=== PATIENT | female | born 1985 | race Two or more races ===

== ENCOUNTER 2021-12-31 09:51 | Outpatient (CLI) | payer OTHER | END 2021-12-31 11:35 | disposition home or self-care (01) | LOC: PRENATAL 09:51 | PROVIDERS: ATTEND Obstetrics & Gynecology Maternal & Fetal Medicine | DX: O24.319 Unspecified pre-existing diabetes mellitus in pregnancy, unspecified trimester (principal) ==

== ENCOUNTER 2022-01-07 12:24 | Outpatient (CLI) | payer OTHER | END 2022-01-07 13:32 | disposition home or self-care (01) | LOC: PRENATAL 12:24 | PROVIDERS: ATTEND Obstetrics & Gynecology Maternal & Fetal Medicine | DX: O36.80X0 Pregnancy with inconclusive fetal viability, not applicable or unspecified (principal) ==

== ENCOUNTER 2022-03-04 12:41 | Outpatient (CLI) | payer OTHER | END 2022-03-04 14:33 | disposition home or self-care (01) | LOC: PRENATAL 12:41 | PROVIDERS: ATTEND Obstetrics & Gynecology Maternal & Fetal Medicine | DX: O35.0XX0 Maternal care for (suspected) central nervous system malformation in fetus, not applicable or unspecified (principal); O35.3XX0 Maternal care for (suspected) damage to fetus from viral disease in mother, not applicable or unspecified; O24.419 Gestational diabetes mellitus in pregnancy, unspecified control; O09.519 Supervision of elderly primigravida, unspecified trimester; O99.210 Obesity complicating pregnancy, unspecified trimester; Z3A.20 20 weeks gestation of pregnancy ==

== ENCOUNTER 2022-04-26 13:33 | Outpatient (CLI) | payer OTHER | END 2022-04-26 15:45 | disposition home or self-care (01) | LOC: PRENATAL 13:33 | PROVIDERS: ATTEND Obstetrics & Gynecology Maternal & Fetal Medicine | DX: O26.849 Uterine size-date discrepancy, unspecified trimester (principal); O24.419 Gestational diabetes mellitus in pregnancy, unspecified control; O09.519 Supervision of elderly primigravida, unspecified trimester; O99.210 Obesity complicating pregnancy, unspecified trimester; Z3A.28 28 weeks gestation of pregnancy ==

== ENCOUNTER 2022-06-04 14:31 | Outpatient (CLI) | payer OTHER | END 2022-06-04 15:48 | disposition home or self-care (01) | LOC: PRENATAL 14:31 | PROVIDERS: ATTEND Obstetrics & Gynecology Maternal & Fetal Medicine | DX: O26.849 Uterine size-date discrepancy, unspecified trimester (principal); O24.419 Gestational diabetes mellitus in pregnancy, unspecified control; O09.519 Supervision of elderly primigravida, unspecified trimester; O99.210 Obesity complicating pregnancy, unspecified trimester; Z3A.33 33 weeks gestation of pregnancy ==

== ENCOUNTER 2022-07-06 08:15 | Inpatient (IN) | payer OTHER ==
[~2022-07-06] VITALS: Ht 162.6 cm; Wt 3.6 kg
[2022-07-09] MEDS ORDERED: COMPLETE NATAL1 EACH PO (05:43)
[2022-07-12] MEDS ORDERED: LABETALOL HCL200 MG PO (04:45)
== END 2022-07-12 13:31 | disposition home or self-care (01) | DRG 788 ==
LOC: OB/GYN 07-09 05:10 → O/R 07-09 05:10 → LDR 07-09 07:00 → OB/GYN 07-09 14:28 → O/R 07-09 16:56 → OB/GYN 07-10 17:19
PROVIDERS: ADMIT Specialist; ATTEND Specialist
PROC: 4A1HXCZ Monitoring of Products of Conception, Cardiac Rate, External Approach (ICD-10-PCS; 2022-07-09)
PROC: 10D00Z1 Extraction of Products of Conception, Low, Open Approach (ICD-10-PCS; principal; 2022-07-09 07:00)
DX: O32.2XX0 Maternal care for transverse and oblique lie, not applicable or unspecified (principal); O99.820 Streptococcus B carrier state complicating pregnancy; Z3A.38 38 weeks gestation of pregnancy; Z37.0 Single live birth; Z20.822 Contact with and (suspected) exposure to COVID-19